=== PATIENT | male | born 1980 | race Caucasian/White ===

== ENCOUNTER 2018-11-02 14:54 | Emergency (ER) | payer MEDICAID ==
[2018-11-02 15:09] VITALS: RESP 18; TEMP 98; BMI 34.0
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
[2018-11-02] MEDS ORDERED: Bacitracin 500 Units/gm Oint Foilpak UD TOP STA (16:32)
[2018-11-02] MEDS ORDERED: Lidocaine 1% Inj (20ml) IJ STA (16:32)
[2018-11-02] MEDS ORDERED: Lidocaine 1% Inj (20ml) ONE (16:37)
[2018-11-02] MEDS ORDERED: Bacitracin 500 Units/gm Oint Foilpak UD ONE (16:38)
[2018-11-02 16:47] VITALS: BP 140/83; PULSE 66; O2SAT 99
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
== END 2018-11-02 17:04 | disposition home or self-care (01) ==
LOC: ED 14:54
DX: S01.111A Laceration without foreign body of right eyelid and periocular area, initial encounter (principal); S00.81XA Abrasion of other part of head, initial encounter; Y04.0XXA Assault by unarmed brawl or fight, initial encounter; F17.210 Nicotine dependence, cigarettes, uncomplicated